=== PATIENT | male | born 1985 | race African-American/Black ===

== ENCOUNTER 2025-05-03 15:38 | Inpatient (IN) | payer MEDICARE, MEDICAID ==
[~2025-05-03] VITALS: Ht 182.9 cm; Wt 73.0 kg
[2025-05-03 15:41] VITALS: O2SAT 100
[2025-05-03 16:06] LABS: BASOPHILS % 0.3 % (0.0-2.0); EOSINOPHILS % 0.0 % (0.0-5.0); HEMATOCRIT. 44.9 % (42.0-52.0); HEMOGLOBIN. 15.1 g/dL (14.0-18.0); LYMPHOCYTES % 10.3 % (20.0-50.0); MEAN PLATELET VOLUME 7.7 fl (7.4-10.4); MONOCYTES % 7.6 % (2.0-8.0); NEUTROPHILS % 81.8 % (40.0-76.0); PLATELET 344 x1000/uL (130-400); RED BLOOD CELL COUNT 4.76 mill/uL (4.7-6.1); RED CELL DISTRIBUTION WIDTH 13.2 % (11.6-14.6)
[2025-05-03 16:19] LABS: CREATININE 1.2 mg/dL (0.6-1.3); UREA NITROGEN BLOOD 16 mg/dL (9-23)
[2025-05-03] MEDS: VANCOMYCIN 1G PREMIX 200 ML IV ONE (18:00)
[2025-05-03 18:34] LABS: ASPARTATE AMINOTRANSFERASE 21 IU/L (<34); BILIRUBIN DIRECT 0.2 mg/dL (<=3.0); BILIRUBIN TOTAL 0.5 mg/dL (0.1-1.0); PROTEIN TOTAL 8.1 g/dL (6.0-8.3)
[2025-05-03 18:35] LABS: INR 1.0
[2025-05-03 18:42] LABS: C REACTIVE PROTEIN HIGH SENS 71.82 mg/l (<1.00)
[2025-05-03] MEDS: SODIUM CHLORIDE 0.9% 1,000 ML IV ONE (18:44)
[2025-05-03] MEDS: CEFTRIAXONE 1GM/50ML 50 ML IV ONE (18:44)
[2025-05-03] MEDS: ACETAMINOPHEN 500MG TABLET PO ONE (18:44)
[2025-05-03] MEDS: SODIUM CHLORIDE 0.9% (SEPSIS BOLUS) IV ONE (18:45)
[2025-05-03] MEDS ORDERED: ATOR40TA70 MT (23:21)
[2025-05-03] MEDS ORDERED: ACETAMINOPHEN 325MG TABLET PO PRN (23:45)
[2025-05-04] MEDS ORDERED: NALOXONE HCL 0.4MG/ML VIAL IV PRN (00:15)
[2025-05-04] MEDS: ACETAMINOPHEN 325MG TABLET PO PRN (00:16)
[2025-05-04 01:03] VITALS: BP 142/92; PULSE 54; RESP 18; TEMP 36.5848
[2025-05-04] MEDS: CEFAZOLIN 1000MG PREMIX 50ML IV SCH (01:35)
[2025-05-04 04:00] VITALS: BP 121/82; PULSE 61; RESP 18; TEMP 36.9; O2SAT 96
[2025-05-04 04:27] LABS: CLARITY URINE CLEAR (CLEAR); COLOR URINE YELLOW (YELLOW); GLUCOSE URINE NEGATIVE (NEGATIVE); KETONES URINE 1+ (NEGATIVE); LEUKOCYTE ESTERASE URINE NEGATIVE (NEGATIVE); NITRITE URINE NEGATIVE (NEGATIVE); OCCULT BLOOD URINE NEGATIVE (NEGATIVE); PH URINE 6.5 (4.5-8.0); PROTEIN URINE NEGATIVE (NEGATIVE); SPECIFIC GRAVITY URINE 1.023 (1.005-1.030); UROBILINOGEN URINE 1.0 E.U./dL (0.2-1.0)
[2025-05-04 04:46] LABS: *AMPHETAMINES SCREEN URINE NEGATIVE (NEGATIVE); *BARBITURATES SCREEN URINE NEGATIVE (NEGATIVE); *BENZODIAZEPINES SCREEN URINE NEGATIVE (NEGATIVE); *COCAINE SCREEN URINE NEGATIVE (NEGATIVE); METHADONE URINE SCREEN NEGATIVE (NEGATIVE)
[2025-05-04 04:47] LABS: CANNABINOID URINE SCREEN PRESUMPTIVE POSITIVE (NEGATIVE); ECSTASY MDMA SCREEN URINE NEGATIVE (NEGATIVE); OPIATES URINE SCREEN NEGATIVE (NEGATIVE); PHENCYCLIDINE URINE SCREEN NEGATIVE (NEGATIVE)
[2025-05-04] MEDS ORDERED: CEFAZOLIN SODIUM 1000MG/VIAL IV SCH (06:00)
[2025-05-04 08:35] VITALS: BP 142/78; PULSE 64; RESP 18; TEMP 36.6; O2SAT 99
[2025-05-04] MEDS: AMLODIPINE 5MG TABLET PO SCH (09:02)
[2025-05-04] MEDS: ENOXAPARIN 40MG/0.4ML SYR SUBCUT SCH (09:03)
[2025-05-04 09:48] LABS: HEPATITIS C AB NON REACTIVE (Neg) (Negative)
[2025-05-04 12:00] VITALS: BP 137/81; PULSE 66; RESP 18; TEMP 36.6; O2SAT 100
[2025-05-04] MEDS: HYDROCODONE/ACETAMINOPHEN 5/325MG TABLET PO PRN (12:51)
[2025-05-04 16:00] VITALS: BP 131/89; PULSE 75; RESP 18; TEMP 36.6; O2SAT 98
[2025-05-04] MEDS ORDERED: ONDANSETRON HCL 4MG/2ML INJ IV PRN (18:30)
[2025-05-04] MEDS ORDERED: ACETAMINOPHEN 325MG TABLET PO PRN (18:30)
[2025-05-04 20:00] VITALS: BP 136/83; PULSE 64; RESP 18; TEMP 36.8; O2SAT 99
[2025-05-04] MEDS: VANCOMYCIN 750MG PREMIX 150 ML IV SCH (21:11)
[2025-05-04] MEDS: ATORVASTATIN CALCIUM 40MG TABLET PO SCH (21:12)
[2025-05-05] VITALS: BP 123/77; PULSE 69; RESP 17; TEMP 36.8; O2SAT 100
[2025-05-05] MEDS: VANCOMYCIN 750MG PREMIX 150 ML IV SCH (02:23)
[2025-05-05 04:00] VITALS: BP 140/74; PULSE 77; RESP 19; TEMP 36.7; O2SAT 100
[2025-05-05 08:00] VITALS: BP 136/71; PULSE 79; RESP 18; TEMP 36.8; O2SAT 99
[2025-05-05] MEDS ORDERED: ATORVASTATIN CALCIUM 40MG TABLET PO SCH (09:00)
[2025-05-05] MEDS: PANTOPRAZOLE SODIUM 40 MG/VIAL IV SCH (09:23)
[2025-05-05 12:00] VITALS: BP 132/75; PULSE 80; RESP 18; TEMP 36.6; O2SAT 100
[2025-05-05] MEDS: PIPERACILLIN/TAZO 3.375G/50ML IV SCH (13:51)
[2025-05-05] MEDS: VANCOMYCIN 1GM PMX (XELLIA) 200 ML IV SCH (14:00)
[2025-05-05 16:00] VITALS: BP 128/80; PULSE 77; RESP 18; TEMP 36.8; O2SAT 99
[2025-05-05 18:38] LABS: HEMATOCRIT. 41.2 % (42.0-52.0); HEMOGLOBIN. 14.0 g/dL (14.0-18.0); MEAN PLATELET VOLUME 8.2 fl (7.4-10.4); PLATELET 335 x1000/uL (130-400); RED BLOOD CELL COUNT 4.35 mill/uL (4.7-6.1); RED CELL DISTRIBUTION WIDTH 13.3 % (11.6-14.6)
[2025-05-05 18:55] LABS: CREATININE 0.8 mg/dL (0.6-1.3)
[2025-05-05 18:56] LABS: UREA NITROGEN BLOOD 7 mg/dL (9-23)
[2025-05-05 19:11] LABS: EOSINOPHILS % MANUAL 3.0 % (0.0-5.0); LYMPHOCYTES % MANUAL 27.0 % (20.0-50.0); MONOCYTES % MANUAL 20.0 % (2.0-8.0); NEUTROPHILS % MANUAL 50.0 % (45.0-75.0); PLATELET ESTIMATE NORMAL
[2025-05-05 20:00] VITALS: BP 120/70; PULSE 60; RESP 20; TEMP 36.6; O2SAT 99
[2025-05-06] VITALS: BP 123/74; PULSE 62; RESP 18; TEMP 36.5; O2SAT 99
[2025-05-06 04:00] VITALS: BP 133/71; PULSE 60; RESP 16; TEMP 36.6; O2SAT 100
[2025-05-06 08:00] VITALS: BP 127/79; PULSE 58; RESP 15; TEMP 36.6; O2SAT 99
[2025-05-06 08:12] LABS: CREATININE 0.8 mg/dL (0.6-1.3)
[2025-05-06 08:13] LABS: UREA NITROGEN BLOOD 9 mg/dL (9-23)
[2025-05-06 12:00] VITALS: BP 123/76; PULSE 61; RESP 16; TEMP 36.8; O2SAT 100
[2025-05-06 16:00] VITALS: BP 129/79; PULSE 59; RESP 16; TEMP 36.7; O2SAT 99
[2025-05-06] MEDS: VANCOMYCIN 1.25GM/250ML IV SCH (18:07)
[2025-05-07] VITALS: BP 135/80; PULSE 65; RESP 18; TEMP 36.2; O2SAT 99
[2025-05-07 04:00] VITALS: BP 118/70; PULSE 57; RESP 16; TEMP 36.8; O2SAT 99
[2025-05-07 08:00] VITALS: BP 128/80; PULSE 61; RESP 17; TEMP 36.8; O2SAT 98
[2025-05-07 12:00] VITALS: BP 130/78; PULSE 64; RESP 17; TEMP 36.3; O2SAT 98
[2025-05-07 16:00] VITALS: BP 124/83; PULSE 58; RESP 16; TEMP 36.2; O2SAT 98
[2025-05-07 20:00] VITALS: BP 128/71; PULSE 58; RESP 16; TEMP 36.3; O2SAT 100
[2025-05-08] VITALS: BP 128/83; PULSE 56; RESP 16; TEMP 36.7; O2SAT 100
[2025-05-08 03:35] LABS: CREATININE 1.1 mg/dL (0.6-1.3); UREA NITROGEN BLOOD 11 mg/dL (9-23)
[2025-05-08 04:00] VITALS: BP 124/76; PULSE 64; RESP 16; TEMP 36.7; O2SAT 99
[2025-05-08 08:30] VITALS: BP 133/90; PULSE 70; RESP 18; TEMP 36.6; O2SAT 100
[2025-05-08 13:02] VITALS: BP 131/82; PULSE 64; RESP 18; TEMP 36.7; O2SAT 100
[2025-05-08 16:15] VITALS: BP 112/70; PULSE 61; RESP 18; TEMP 36.6; O2SAT 100
[2025-05-08 20:00] VITALS: BP 125/78; PULSE 62; RESP 16; TEMP 36.6; O2SAT 100
[2025-05-09] VITALS: BP 118/67; PULSE 72; RESP 14; TEMP 36.4; O2SAT 98
[2025-05-09 04:00] VITALS: BP 124/78; PULSE 68; RESP 16; TEMP 36; O2SAT 97
[2025-05-09 08:36] VITALS: BP 126/71; PULSE 62; RESP 18; TEMP 36.2; O2SAT 100
[2025-05-09] MEDS: FAMOTIDINE 20MG TABLET PO SCH (09:25)
[2025-05-09 12:00] VITALS: BP 124/75; PULSE 58; RESP 18; TEMP 36.7; O2SAT 98
[2025-05-09 16:00] VITALS: BP 118/77; PULSE 62; RESP 18; TEMP 36.7; O2SAT 100
[2025-05-09 20:00] VITALS: BP 125/82; PULSE 69; RESP 17; TEMP 36.2; O2SAT 100
[2025-05-10] VITALS: BP 121/79; PULSE 71; RESP 16; TEMP 36; O2SAT 99
[2025-05-10 04:00] VITALS: BP 117/63; PULSE 73; RESP 16; TEMP 36.2; O2SAT 99
[2025-05-10 08:00] VITALS: BP 136/81; PULSE 60; RESP 17; TEMP 36.7; O2SAT 100
[2025-05-10 12:00] VITALS: BP 148/92; PULSE 80; RESP 18; TEMP 36.8; O2SAT 99
[2025-05-10 16:00] VITALS: BP 123/73; PULSE 69; RESP 17; TEMP 36.7; O2SAT 100
[2025-05-10 20:00] VITALS: BP 124/87; PULSE 76; RESP 20; TEMP 36.4; O2SAT 100
[2025-05-10 22:17] LABS: BASOPHILS % 0.8 % (0.0-2.0); EOSINOPHILS % 2.7 % (0.0-5.0); HEMATOCRIT. 43.1 % (42.0-52.0); HEMOGLOBIN. 14.4 g/dL (14.0-18.0); LYMPHOCYTES % 25.9 % (20.0-50.0); MEAN PLATELET VOLUME 7.6 fl (7.4-10.4); MONOCYTES % 11.9 % (2.0-8.0); NEUTROPHILS % 58.7 % (40.0-76.0); PLATELET 384 x1000/uL (130-400); RED BLOOD CELL COUNT 4.57 mill/uL (4.7-6.1); RED CELL DISTRIBUTION WIDTH 13.3 % (11.6-14.6)
[2025-05-10 22:37] LABS: CREATININE 1.1 mg/dL (0.6-1.3); UREA NITROGEN BLOOD 13 mg/dL (9-23)
[2025-05-11] VITALS (7 sets, daily range): BP systolic 113–141; BP diastolic 76–87; PULSE 59–86; RESP 18; TEMP 36.5–36.8; O2SAT 99–100
[2025-05-11 07:13] LABS: BASOPHILS % 1.5 % (0.0-2.0); EOSINOPHILS % 2.9 % (0.0-5.0); HEMATOCRIT. 40.8 % (42.0-52.0); HEMOGLOBIN. 13.8 g/dL (14.0-18.0); LYMPHOCYTES % 22.4 % (20.0-50.0); MEAN PLATELET VOLUME 7.6 fl (7.4-10.4); MONOCYTES % 12.9 % (2.0-8.0); NEUTROPHILS % 60.3 % (40.0-76.0); PLATELET 389 x1000/uL (130-400); RED BLOOD CELL COUNT 4.33 mill/uL (4.7-6.1); RED CELL DISTRIBUTION WIDTH 13.1 % (11.6-14.6)
[2025-05-11 07:21] LABS: CREATININE 1.1 mg/dL (0.6-1.3)
[2025-05-11 07:22] LABS: UREA NITROGEN BLOOD 10 mg/dL (9-23)
[2025-05-11] MEDS ORDERED: LIDOCAINE HCL 1% 10 MG/ML 10ML VIAL ONE (09:14)
[2025-05-12] VITALS: BP 139/98; PULSE 86; RESP 18; TEMP 36.6; O2SAT 99
[2025-05-12 04:00] VITALS: BP 136/83; PULSE 63; RESP 18; TEMP 36.7; O2SAT 100
[2025-05-12 08:00] VITALS: BP 121/85; PULSE 70; RESP 18; TEMP 36.4; O2SAT 99
[2025-05-12 12:00] VITALS: BP 131/86; PULSE 74; RESP 18; TEMP 36.8; O2SAT 100
[2025-05-12 16:00] VITALS: BP 133/81; PULSE 64; RESP 17; TEMP 36.7; O2SAT 99
[2025-05-12 20:00] VITALS: BP 131/84; PULSE 83; RESP 17; TEMP 36.6; O2SAT 99
[2025-05-13] VITALS: BP 120/79; PULSE 68; RESP 16; TEMP 36.8; O2SAT 100
[2025-05-13 04:00] VITALS: BP 130/77; PULSE 63; RESP 18; TEMP 36.9; O2SAT 98
[2025-05-13 08:30] VITALS: BP 134/85; PULSE 64; RESP 18; TEMP 36.4; O2SAT 99
[2025-05-13 12:18] VITALS: BP 130/86; PULSE 64; RESP 18; TEMP 36.4; O2SAT 100
[2025-05-13 12:21] VITALS: BP 130/86; PULSE 64; RESP 18; TEMP 97.5
== END 2025-05-13 16:03 | disposition home health service (06) | DRG 540 ==
LOC: ER 15:38 → 8EST 21:21 → EDBEDREQ 21:47 → EDBEDREQTM 21:47 → ENRESERV 22:32 → 8EST 05-05 10:20
PROVIDERS: ADMIT Internal Medicine; ATTEND Internal Medicine
PROC: 02HV33Z Insertion of Infusion Device into Superior Vena Cava, Percutaneous Approach (ICD-10-PCS; principal; 2025-05-11)
PROC: B5181ZA Fluoroscopy of Superior Vena Cava using Low Osmolar Contrast, Guidance (ICD-10-PCS; 2025-05-11)
PROC: B548ZZA Ultrasonography of Superior Vena Cava, Guidance (ICD-10-PCS; 2025-05-11)
DX: M86.8X7 Other osteomyelitis, ankle and foot (principal); L02.611 Cutaneous abscess of right foot; L03.115 Cellulitis of right lower limb; Z59.00 Homelessness unspecified; Z79.899 Other long term (current) drug therapy; E78.5 Hyperlipidemia, unspecified
CPT/HCPCS: 36415; 36573; 71045; 73620; 73718; 80048; 80076; 80202; 80305; 81003; 82550; 83605; 84145; 85025; 85651; 86141; 86705; 87340; 96365; 96367; 99285; A4606; C1725; J0690; J0696; J1650; J2003; J2470; J2543; J3373; J7030